=== PATIENT | female | born 1950 | race Caucasian/White ===

== ENCOUNTER 2020-08-07 15:34 | Outpatient (CLI) | payer MEDICARE, OTHER ==
[2020-08-07 20:20] LABS: ALT ALANINE AMINOTRANSFERASE 24 IU/L (10-60); AST ASPARTATE AMINOTRANSFERASE 25 IU/L (10-42)
== END 2020-08-07 15:35 | disposition home or self-care (01) ==
LOC: LAB.S 15:34
PROVIDERS: ATTEND Physician Assistant
DX: B35.1 Tinea unguium (principal)
CPT/HCPCS: 36415; 84450; 84460